=== PATIENT | female | born 1960 | race Caucasian/White ===

== ENCOUNTER → 2017-12-27 08:06 | Outpatient (REF) | payer OTHER, SELFPAY ==
[2017-12-27 13:03] LABS: Anion Gap 5.8 mmol/L (3-11); BUN 19 mg/dL (7-18); CO2 28.2 mmol/L (21.0-32.0); CREATININE 0.76 mg/dL (0.55-1.02); Calcium 8.8 mg/dL (8.5-10.1); Chloride 106 mmol/L (98-107); Cholesterol 208 mg/dL (50-200); Glucose 97 mg/dL (70-100); HDL Cholesterol 52 mg/dL (40-60); LDL CHOLESTEROL 134 mg/dL (<100); Potassium 4.5 mmol/L (3.5-5.1); Sodium 140 mmol/L (136-145); Triglyceride 120 mg/dL (30-150)
[2018-01-01 11:30] LABS: Hepatitis C Ab w Rflx HCV PCR Negative (NEGAT)
== END ==
LOC: NCHCN 08:06
PROVIDERS: PCP Nurse Practitioner Family; Visit Provider Nurse Practitioner Family
DX: Z00.00 Encounter for general adult medical examination without abnormal findings (principal); I10 Essential (primary) hypertension; E78.5 Hyperlipidemia, unspecified; E66.3 Overweight; Z11.59 Encounter for screening for other viral diseases
CPT/HCPCS: 80048; 80061; 83721; 86803

== ENCOUNTER 2018-07-07 17:35 | Outpatient (REF) | payer OTHER, SELFPAY ==
[2018-07-07 21:31] LABS: HCT 42.7 % (36.0-46.0); Mean Corp. HGB Concentration 32.8 g/dL (32.0-36.0); Mean Corpuscular Hemoglobin 29.4 pg (27.0-33.0); Mean Corpuscular Volume 89.7 fL (80-95); Mean Platelet Volume 10.6 fL (8.0-11.0); Platelet Count 282 x1000/uL (130-400); RBC 4.76 m/cumm (4.00-5.20); RBC Distribution Width 14.4 % (11.7-14.6); White Blood Cell Count 9.07 k/cumm (4.4-10.8)
[2018-07-07 22:20] LABS: Anion Gap 9.5 mmol/L (3-11); BUN 13 mg/dL (7-18); CO2 27.5 mmol/L (21.0-32.0); CREATININE 0.65 mg/dL (0.55-1.02); Calcium 9.2 mg/dL (8.5-10.1); Chloride 103 mmol/L (98-107); Glucose 92 mg/dL (70-100); Magnesium 1.9 mg/dL (1.8-2.4); Potassium 3.9 mmol/L (3.5-5.1); Sodium 140 mmol/L (136-145); TSH (W/Ref FT4) 3.43 uIU/mL (0.358-3.74)
== END 2018-07-07 17:55 ==
LOC: NCHCN 17:35
PROVIDERS: PCP Nurse Practitioner Family; Visit Provider Nurse Practitioner Family
DX: R00.2 Palpitations (principal); E66.3 Overweight; I10 Essential (primary) hypertension; E78.5 Hyperlipidemia, unspecified
CPT/HCPCS: 80048; 85027; 83735; 84443

== ENCOUNTER 2018-10-13 13:46 | Outpatient (REF) | payer OTHER, SELFPAY ==
--- NOTE | 2018-10-13 13:11 | SKI_PTH ---
PATIENT: Berenice Jang LOC: [facility] U#:[id number] AGE/SX: 58/F ROOM: RE10/13/[address]: Zackery Galindo DO : 1960 BED: DIS: 10/13/2018 SPEC #: [id number] RECD: 10/13/18 18:21 STATUS: CARMEN RELisa #: [id number] WILL: 10/13/18 13:[address]: Zackery Galindo DEPT: Surgical Specimen RECD BY: Lili Littlejohn ENTERED: 10/13/18 18:21 SP TYPE: BERENICE SUAREZ DR: Clarisa Meyers Tissues: 1 - SKIN BIOPSY(SHAVE/PUNCH) Procedures: SKIN LEVEL 4 Comments: [id number]
== END 2018-10-13 14:06 ==
LOC: LBN 13:46
PROVIDERS: PCP Nurse Practitioner Family; Visit Provider Otolaryngology Otolaryngology/Facial Plastic Surgery
DX: L82.0 Inflamed seborrheic keratosis (principal)
CPT/HCPCS: 88305

== ENCOUNTER 2023-06-11 21:20 | Outpatient (REF) | payer BC, SELFPAY | END 2023-06-11 21:21 | disposition home or self-care (01) | LOC: LBN 21:20 | PROVIDERS: PCP Nurse Practitioner Family; Visit Provider Nurse Practitioner Family | DX: J02.9 Acute pharyngitis, unspecified (principal) | CPT/HCPCS: 87070 ==